=== PATIENT | female | born 2000 | race African-American/Black ===

== ENCOUNTER 2019-08-10 23:08 | Inpatient (IN) ==
[2019-08-10] MEDS ORDERED: MEPERIDINE 50 MG/1 ML VIAL IV PRN (23:26)
[2019-08-10] MEDS ORDERED: MEPERIDINE 50 MG/1 ML VIAL ONE (23:26)
[2019-08-10] MEDS ORDERED: LACTATED RINGERS 500 ML IV PRN (23:26)
[2019-08-10] MEDS ORDERED: ONDANSETRON 4 MG/2 ML VIAL IV PRN (23:26)
[2019-08-10] MEDS ORDERED: ONDANSETRON 4 MG/2 ML VIAL ONE (23:26)
[2019-08-10] MEDS ORDERED: OXYTOCIN/LR 20 UNIT/1,000 ML BAG IV ONE (23:29)
[2019-08-11 00:10] LABS: Basophils % 0.3 % (0.0-0.8); Eosinophils # 0.1 10*3/uL (0.0-0.87); Eosinophils % 0.7 % (0.00-10.9); Hematocrit 35.3 VOL% (35.7-47.0); Hemoglobin 11.4 GM/DL (12.0-16.0); Immature Granulocytes % 0.6 %; Immature Granulocytes Absolute 0.07 #; Lymphocytes # 3.6 10*3/uL (1.4-4.0); Lymphocytes % 30.9 % (21.3-54.2); Mean Corpuscular HGB Conc 32.3 GM/DL (32-36); Mean Corpuscular Volume 86.3 FL (87-102); Mean Platelet Volume 11.3 FL (9.6-12.0); Neutrophils % 57.5 % (38.7-73.9); Platelet Count 190 T/CUMM (130-400); Red Blood Count 4.09 MC/CUMM (3.8-5.5); Red Cell Distribution Width 11.8 % (9.3-17.3); White Blood Count 11.8 T/CUMM (4-12)
[2019-08-11 00:25] LABS: Albumin 2.7 G/DL (3.4-5.0); Bilirubin,Total 0.6 MG/DL (0.2-1.0); Calcium 9.1 MG/DL (8.5-10.1); Osmolality,Calculated 278.3 MOS/KG (273-304); Total Protein 7.1 G/DL (6.4-8.3)
[2019-08-11] MEDS: IBUPROFEN 800 MG TABLET PO PRN (04:20)
[2019-08-11 07:56] LABS: Basophils % 0.2 % (0.0-0.8); Eosinophils % 0.2 % (0.00-10.9); Hematocrit 30.9 VOL% (35.7-47.0); Hemoglobin 10.3 GM/DL (12.0-16.0); Immature Granulocytes % 0.5 %; Immature Granulocytes Absolute 0.07 #; Lymphocytes # 2.3 10*3/uL (1.4-4.0); Mean Corpuscular HGB Conc 33.3 GM/DL (32-36); Mean Corpuscular Volume 86.1 FL (87-102); Monocytes % 9.5 % (1.7-12.7); Neutrophils % 72.6 % (38.7-73.9); Platelet Count 173 T/CUMM (130-400); Red Blood Count 3.59 MC/CUMM (3.8-5.5); Red Cell Distribution Width 11.9 % (9.3-17.3); White Blood Count 13.2 T/CUMM (4-12)
[2019-08-11] MEDS: DOCUSATE SODIUM 100 MG CAPSULE PO SCH ×2 (09:22→21:32)
[2019-08-12] MEDS: IBUPROFEN 800 MG TABLET PO PRN ×3 (00:58→21:49)
[2019-08-12] MEDS: DOCUSATE SODIUM 100 MG CAPSULE PO SCH ×2 (10:30→21:50)
[2019-08-13] MEDS: DOCUSATE SODIUM 100 MG CAPSULE PO SCH (09:56)
[2019-08-13 11:20] VITALS: BP 94/55
== END 2019-08-13 12:55 | disposition home or self-care (01) | DRG 776 ==
LOC: N.LDOUT 23:08 → N.LD 23:09 → N.OB 08-11 02:00
PROVIDERS: ADMIT Obstetrics & Gynecology; ATTEND Obstetrics & Gynecology